=== PATIENT | female | born 1960 | race Two or more races ===

== ENCOUNTER → 2017-07-20 | Day surgery (SDC) | payer OTHER ==
[~2017-07-20] VITALS: Ht 154.9 cm; Wt 73.5 kg
[2017-07-20 08:52] VITALS: BP 112/69
== END | disposition home or self-care (01) ==
LOC: DS 08:34 → OR 10:30 → DS 10:30
DX: G56.01 Carpal tunnel syndrome, right upper limb (principal); Z53.29 Procedure and treatment not carried out because of patient's decision for other reasons